=== PATIENT | female | born 1965 | race African-American/Black ===

== ENCOUNTER 2016-12-11 14:06 | Emergency (ER) | payer OTHER, MEDICARE, MEDICAID ==
[~2016-12-11] VITALS: Ht 154.9 cm; Wt 82.0 kg
[2016-12-11 14:35] VITALS: BP 125/87
== END 2016-12-11 19:15 | disposition left against medical advice (07) ==
LOC: ER 15:02
DX: M79.602 Pain in left arm (principal); Z53.21 Procedure and treatment not carried out due to patient leaving prior to being seen by health care provider